=== PATIENT | female | born 1965 | race Caucasian/White ===

== ENCOUNTER → 2021-02-13 | Outpatient (CLI) | payer OTHER ==
[~2021-02-13] MED LIST: ANTIVERT 25MG T25 MG PO
== END ==
LOC: KOH-I 13:10
DX: R05.9 Cough, unspecified (principal)
CPT/HCPCS: 71046

== ENCOUNTER 2021-04-21 10:06 | Emergency (ER) | payer OTHER ==
[2021-04-21] MEDS ORDERED: IBUPROFEN600 MG PO (10:33)
== END 2021-04-21 10:53 | disposition home or self-care (01) ==
LOC: ER1 10:06
DX: T26.61XA Corrosion of cornea and conjunctival sac, right eye, initial encounter (principal)
CPT/HCPCS: 99282